=== PATIENT | male | born 1945 | race Caucasian/White ===

== ENCOUNTER → 2019-02-03 08:04 | Outpatient (CLI) | payer MEDICARE, SELFPAY ==
--- NOTE | 2019-02-03 | DI.CT.S_ITS ---
PROCEDURE: CT CHEST ABD PEL W CON INDICATIONS: STAGING PROSTATE CANCER TECHNIQUE: After the administration of oral and intravenous contrast, 5 mm thick sections acquired from the lung apices to the symphysis. 5 mm coronal and sagittal reformats were performed, with additional 7 mm coronal MIP reformats through the lungs. For radiation dose reduction, the following was used: automated exposure control, adjustment of mA and/or kV according to patient size. COMPARISON: [place], [place], [place] BONE SCAN WHOLE BODY, 02/03/2019, 12:05. FINDINGS: Image quality: Excellent. CHEST: Lungs and pleura: There is mild atelectasis in the dependent lung bases bilaterally. No acute airspace opacities. No pleural effusions or pneumothorax. Central and peripheral airways appear patent and normal in caliber. Mediastinum: Heart size is normal. No pericardial effusion. No mediastinal or hilar adenopathy by size criteria. Thoracic aorta and central pulmonary arteries are normal in size. Esophagus is normal in caliber. No hiatal hernia. Chest wall: No axillary or supraclavicular adenopathy by size criteria. Thyroid gland is unremarkable. ABDOMEN: Solid organs: Liver is normal in size and overall enhancement. An 8 mm diameter hypervascular lesion is present within hepatic segment VII (series 2, image 50). A possible second 4 mm diameter hypervascular lesion is present within hepatic segment II (series 2, image 51). Gallbladder is unremarkable. Biliary system is non dilated. Pancreas enhances normally. Spleen is normal in size and enhancement. No adrenal nodules. Kidneys demonstrate normal size and enhancement, without hydronephrosis. Peritoneum and bowel: Bowel loops demonstrate normal wall thickness and caliber. There are scattered sigmoid diverticula. No evidence for diverticulitis. No free fluid or air. Nodes and vessels: No retroperitoneal or mesenteric adenopathy by size criteria. Aorta and inferior vena cava are normal in size. There are scattered atheromatous calcifications throughout the aorta and iliac arteries bilaterally. Miscellaneous: No ventral hernias. PELVIS: Genitourinary: Bladder wall thickness is normal. Miscellaneous: No inguinal hernias or adenopathy. Bones: No suspicious bony lesions. No vertebral body compression fractures. IMPRESSION: 1. 2 subcentimeter hypervascular lesions within the liver which likely represent small hemangiomas but are too small to fully characterize. Although neoplasm is considered less likely, hepatic metastasis cannot be entirely excluded. If further characterization is warranted, a hepatic mass protocol MRI could be used. 2. No other findings to suggest metastasis. Dictated by: Mamie Jean-Baptiste M.D. on 02/03/2019 at 13:24 Approved by: Mamie Jean-Baptiste M.D. on 02/03/2019 at 13:41
--- NOTE | 2019-02-03 | DI.NM.S_ITS ---
PROCEDURE: [place] BONE SCAN WHOLE BODY RADIOPHARMACEUTICAL: 19.4 mCi Tc-99m MDP IV. INDICATIONS: PROSTATE CANCER TECHNIQUE: Delayed whole-body scintigrams were obtained approximately 3-4 hours after intravenous injection of radiotracer. Anterior and posterior views were acquired from vertex to feet. Additional left and right oblique views of the thoracic cage and lumbar were obtained. COMPARISON: [facility], CR, CHEST 1 VIEW, 06/11/2015, 10:25. [facility], CT, CT CHEST ABD PEL W CON, 02/03/2019, 9:51. FINDINGS: No lesions are identified in skull, sternum, clavicles, scapulae, ribs, bony pelvis, and visualized shafts of the long bones. There is low level increased uptake in cervical, thoracic and lumbar spine with distribution indistinguishable from degenerative disc and facet disease; early metastasis to spine could be obscured by degenerative changes. There are foci of increased periarticular activity involving shoulders, sternoclavicular joints, elbows, wrists, hips, SI joints and left knee, compatible with degenerative/arthritic changes. There is normal soft tissue uptake. IMPRESSION: No definitive scintigraphic findings to suggest osseous metastasis. Degenerative changes in thoracic spine which could obscure early metastatic disease. If clinically indicated, MRI with and without contrast is suggested. Dictated by: Jose Carlos Morales M.D. on 02/03/2019 at 14:41 Approved by: Jose Carlos Morales M.D. on 02/03/2019 at 16:05
[2019-02-03 09:03] LABS: BUN Creatinine Ratio 12.7 (6-22); Blood Urea Nitrogen 14 mg/dL (9-20); Calcium 8.9 mg/dL (8.4-10.2); Carbon Dioxide 26 mmol/L (22-32); Chloride 103 mmol/L (98-107); Estimated Glomerular Filt Rate > 60.0 mL/min (>60); Glucose 104 mg/dL (80-110); HEMOLYSIS < 15 (0-50); Potassium 4.1 mmol/L (3.4-5.1); Sodium 140 mmol/L (137-145)
== END ==
PROVIDERS: PCP Family Medicine; Visit Provider Specialist
DX: C61 Malignant neoplasm of prostate (principal); K76.9 Liver disease, unspecified; K57.30 Diverticulosis of large intestine without perforation or abscess without bleeding; M47.814 Spondylosis without myelopathy or radiculopathy, thoracic region
CPT/HCPCS: 36415; 71260; 74177; 78306; 80048; A9503; Q9967

== ENCOUNTER → 2020-11-02 14:14 | Outpatient (CLI) | payer MEDICARE, SELFPAY ==
[2020-11-02] MEDS: COVID-19 VACC #1, MRNA(MOD) 100 MCG/0.5 ML VIAL IM (14:22)
== END ==
PROVIDERS: PCP Family Medicine; Visit Provider Internal Medicine
DX: Z23 Encounter for immunization (principal)
CPT/HCPCS: 0011A; 91301

== ENCOUNTER 2020-11-17 14:48 | Emergency (ER) | payer MEDICARE, SELFPAY ==
--- NOTE | 2020-11-17 14:49 | ED.HEATRA ---
HPI - Head Injury General Chief complaint: Head Injury Stated complaint: fall and hit head, memory loss, repeating self Time Seen by Provider: 11/17/20 14:49 Source: patient Mode of arrival: Ambulatory Limitations: no limitations History of Present Illness HPI Narrative: 75-year-old male former smoker with a history of hyperlipidemia presents with his in the chief complaint of a slip and fall with a head injury just prior to arrival. He denies any other injury and does not take blood thinners. He was out on the [place] driveway, shoveling the snow when he slipped and fell striking the back of his head. He does not think he had a loss of consciousness and he has had no nausea or vomiting. He denies any numbness, tingling or weakness. He has had no slurring of words and no blurred vision. He has no neck pain or back pain. He denies any precipitating event such as dizziness, weakness, lightheadedness. He has had some repetitive questioning since the event but who is at the bedside states he is otherwise well and free of complaint. He denies any exposure to persons known or suspected of having COVID. He has only a mild headache and denies any provocation or palliation. MD Complaint: head injury Onset (ago): minute(s) Mechanism of Injury: fall Place: outdoors Loss of Consciousness: unsure Location of injury: occipital Severity: mild Radiation: none Other Injuries: none Associated symptoms: repetitive questioning Related Data Home Medications Medication Instructions Recorded Confirmed atorvastatin 10 mg tablet 10 mg PO DAILY 09/03/20 09/06/20 cyanocobalamin (vitamin B-12) 500 500 mcg PO DAILY 09/03/20 09/06/20 mcg chewable tablet omega-3 fatty acids 1,000 mg 1,000 mg PO DAILY 09/03/20 09/06/20 capsule Allergies Allergy/AdvReac Type Severity Reaction Status Date / Time No Known Drug Allergies Allergy Verified 11/17/20 15:03 Review of Systems Constitutional Constitutional: Denies chills, Denies fatigue, Denies fever(s), Denies frequent falls, Denies lethargy and Denies weakness Eyes Eyes: Denies change in vision, Denies eye discharge, Denies irritation and Denies loss of vision ENT Ears, Nose, Mouth, and Throat: Denies change in voice, Denies dizziness, Denies neck pain, Denies sore throat and Denies throat swelling Cardiovascular Cardiovascular: Denies chest pain, Denies irregular heart rhythm, Denies lightheadedness, Denies palpitations, Denies dyspnea, Denies dyspnea on exertion and Denies orthopnea Respiratory Respiratory: Denies cough, Denies dyspnea, Denies dyspnea on exertion and Denies wheezing Gastrointestinal Gastrointestinal: Denies abdominal pain, Denies change in bowel habits, Denies diarrhea, Denies nausea and Denies vomiting Musculoskeletal Musculoskeletal: Denies neck pain and Denies numbness Integumentary/Breasts Skin/Breast: Denies pruritus, Denies erythema, Denies rash and Denies wounds Neurologic Neurologic: Denies behavioral changes, Denies confusion, Denies dizziness, Denies frequent falls, Denies loss of vision, Denies numbness and Denies weakness Comments: Occasional repetitive questioning Psychiatric Psychiatric: Denies anxiety, Denies behavioral changes, Denies confusion, Denies depression, Denies homicidal ideation and Denies suicidal ideation Endocrine Endocrine: Denies fatigue, Denies flushing and Denies palpitations Hematologic/Lymphatic Hematologic/Lymphatic: Denies easy bruising Allergic/Immunologic Allergic/Immunologic: Denies urticaria, Denies throat swelling and Denies wheezing Patient History Medical History BPH (benign prostatic hyperplasia) Prostate cancer Testicular cancer Surgical History H/O prostate biopsy H/O prostatectomy H/O vasectomy Hx of appendectomy Family History Father Stroke Eczema Mother Gout Hearing impairment Social History marital status: number of children: 2 occupational status: previously employed Smoking Status: Former smoker alcohol intake: current caffeine: Yes Smoking Status: Former smoker Exam Narrative Exam Narrative: GENERAL: [75] year old patient appears stated age. Well-nourished, well-developed patient, in mild distress. GCS 15 HEAD: Atraumatic. Normocephalic. EYES: Pupils equal round and reactive. Extraocular motions intact. No scleral icterus. No injection or drainage. ENT: Nose without bleeding, purulent drainage. Throat without erythema, tonsillar hypertrophy or exudate. Airway patent. NECK: Trachea midline. Non tender CARDIOVASCULAR: Regular rate and rhythm without murmurs, gallops, or rubs. RESPIRATORY: Clear to auscultation. Breath sounds equal bilaterally. No wheezes, rales, or rhonchi. GASTROINTESTINAL: Abdomen soft, non-tender, nondistended. EXTREMITIES: No edema or joint tenderness. BACK: Nontender without deformity or crepitance. No flank tenderness. NEURO: AOx3. SKIN: No rash or erythema of visible areas NIH Stroke Scale 1a. LOC: Patient is alert and keenly responsive (0) 1b. LOC Questions: Patient answers both LOC questions accurately (0) 1c. LOC Commands: Patient performs both tasks correctly (0) 2. Best Gaze: Normal (0) 3. Visual: No visual loss (0) 4. Facial palsy: Normal symmetrical movements (0) 5. Motor arm: No drift (0) 6. Motor leg: No drift (0) 7. Limb ataxia: Absent (0) 8. Sensory: Normal (0) 9. Best language: No aphasia; normal (0) 10. Dysarthria: Normal (0) 11. Extinction and inattention: No abnormality (0) NIHSS: 0 Initial Vital Signs Initial Vital Signs: Vital Signs Temperature 97.7 F 11/17/20 14:58 Pulse Rate 84 11/17/20 14:58 Respiratory Rate 20 11/17/20 14:58 Blood Pressure 165/75 H 11/17/20 14:58 Pulse Oximetry 97 11/17/20 14:58 Course Orders Ordered: Discontinued Medications Sodium Chloride (Normal Saline 0.9%) 500 mls @ 1,000 mls/hr IV BOLUS ONE Stop: 11/17/20 16:24 Last Infusion: 11/17/20 16:30 Dose: 0 mls/hr Documented by: Admin: 11/17/20 16:04 Dose: 1,000 mls/hr Documented by: ADAL Ondansetron HCl (Ondansetron 4 Mg/2 Ml Inj) 4 mg IV NOW ONE Stop: 11/17/20 15:06 Last Admin: 11/17/20 15:20 Dose: 4 mg Documented by: THELMA Vital Signs Vital signs: Vital Signs - 8 hr 11/17/20 14:58 11/17/20 15:19 11/17/20 15:30 Temperature 97.7 F Pulse Rate 84 77 69 Respiratory Rate 20 15 12 Blood Pressure 165/75 H 137/74 Pulse Oximetry 97 96 96 MDM - Head Injury Lab Data Result diagrams: 11/17/20 15:16 11/17/20 15:16 Labs: Lab Results 11/17/20 11/17/20 11/17/20 Range/Units 15:16 15:16 15:16 WBC 7.9 (4.5-11.0) X10^3/uL RBC 4.59 (4.5-5.9) X10^6/uL Hgb 13.3 L (13.5-17.5) g/dL Hct 39.7 L (41-53) % MCV 86.6 (80-100) fL MCH 29.1 (26-34) PG MCHC 33.6 (30-36) % RDW 13.9 (11.6-14.8) % Plt Count 267 (150-400) X10^3/uL Neut % (Auto) 60.6 (50-75) % Lymph % (Auto) 26.2 (25-40) % [place] % (Auto) 8.3 (3-14) % Eos % (Auto) 3.7 (2-4) % Baso % (Auto) 1.2 (0-2) % Neut # (Auto) 4800 (5213-4428) /uL Lymph # (Auto) 2100 (9331-7563) /uL [place] # (Auto) 700 (0-900) /uL Eos # (Auto) 300 (0-450) /uL Baso # (Auto) 100 (0-100) /uL PT 11.2 (10.1-12.7) SECONDS INR 1.0 (0.9-1.3) APTT 30 (26.4-36.2) SECONDS Sodium 137 (137-145) mmol/L Potassium 3.7 (3.4-5.1) mmol/L Chloride 104 (98-107) mmol/L Carbon Dioxide 26 (22-32) mmol/L BUN 19 (9-20) mg/dL Creatinine 1.37 H (0.66-1.25) mg/dL Estimated GFR 50.9 L (>60) mL/min BUN/Creatinine Ratio 13.9 (6-22) Glucose 124 H (80-110) mg/dL Calcium 8.5 (8.4-10.2) mg/dL Magnesium 2.1 (1.6-2.3) mg/dL Total Bilirubin 0.2 (0.2-1.3) mg/dL AST 26 (17-59) IU/L ALT 21 (<50) IU/L Alkaline Phosphatase 87 (38-126) U/L Total Creatine Kinase 203 H (55-170) U/L CK-MB (CK-2) 2.92 H (<2.37) ng/mL CK-MB (CK-2) Rel Index 1.4 L (1.5-5.0) % Troponin I < 0.012 (0.01-0.034) ng/mL Total Protein 7.4 (6.3-8.2) g/dL Albumin 4.0 (3.5-5.0) g/dL Globulin 3.4 (1.7-4.1) g/dL Albumin/Globulin Ratio 1.2 (1.0-2.8) Lipase 46 (23-300) U/L Urine RBC (0-5/HPF) Urine WBC (0-5/HPF) Urine Bacteria (None) Ur Culture Indicated? 11/17/20 Range/Units 16:00 WBC (4.5-11.0) X10^3/uL RBC (4.5-5.9) X10^6/uL Hgb (13.5-17.5) g/dL Hct (41-53) % MCV (80-100) fL MCH (26-34) PG MCHC (30-36) % RDW (11.6-14.8) % Plt Count (150-400) X10^3/uL Neut % (Auto) (50-75) % Lymph % (Auto) (25-40) % [place] % (Auto) (3-14) % Eos % (Auto) (2-4) % Baso % (Auto) (0-2) % Neut # (Auto) (9783-4932) /uL Lymph # (Auto) (9450-5266) /uL [place] # (Auto) (0-900) /uL Eos # (Auto) (0-450) /uL Baso # (Auto) (0-100) /uL PT (10.1-12.7) SECONDS INR (0.9-1.3) APTT (26.4-36.2) SECONDS Sodium (137-145) mmol/L Potassium (3.4-5.1) mmol/L Chloride (98-107) mmol/L Carbon Dioxide (22-32) mmol/L BUN (9-20) mg/dL Creatinine (0.66-1.25) mg/dL Estimated GFR (>60) mL/min BUN/Creatinine Ratio (6-22) Glucose (80-110) mg/dL Calcium (8.4-10.2) mg/dL Magnesium (1.6-2.3) mg/dL Total Bilirubin (0.2-1.3) mg/dL AST (17-59) IU/L ALT (<50) IU/L Alkaline Phosphatase (38-126) U/L Total Creatine Kinase (55-170) U/L CK-MB (CK-2) (<2.37) ng/mL CK-MB (CK-2) Rel Index (1.5-5.0) % Troponin I (0.01-0.034) ng/mL Total Protein (6.3-8.2) g/dL Albumin (3.5-5.0) g/dL Globulin (1.7-4.1) g/dL Albumin/Globulin Ratio (1.0-2.8) Lipase (23-300) U/L Urine RBC 0-1/hpf (0-5/HPF) Urine WBC 0-1/hpf (0-5/HPF) Urine Bacteria None seen (None) Ur Culture Indicated? Cult not indicated Urine Dip Bedside Urine Glucose Negative Bedside Urine Bilirubin - Negative Bedside Urine Ketone - Negative Urine Specific [place] 1.025 Bedside Urine Occult Blood +/- Bedside Urine pH 6.0 Bedside Urine Protein - Negative Bedside Urine Urobilinogen - Negative Bedside Urine Nitrite - Negative Bedside Urine Leukocytes - Negative Esterase Imaging Data CT scan - head: Radiologist's Impression: Chart Viewer Diagnostics DATE TYPE STATUS REF RANGE/AUTHOR Hx 11/17/20 15:03 Jim Morris 11/17/20 14:55 Jim Morris 02/03/19 00:00 Mamie Jean-Baptiste 02/03/19 00:00 Hayden Morales James R 75, M0 1945 DEP ER, Main ED Head Injury Search Chart No Data to Display ONSET 11/17/20 16:30 Emiliano Goyal 75 M [address] [id number] Scan ReportSigned Patient: Emiliano Goyal RMR#: [id number]: 1945cct:[id number]/Sex: 75 / MDate of Service: 11/17/20Loc: EDAccession Number: [id number] Procedure: CT head/brain wo con Ordering Provider: Brannon Avilez D.O. PROCEDURE: CT HEAD/BRAIN WO CON INDICATIONS: fall, ? LOC, not on thinners, alt mental status TECHNIQUE: Noncontrast 4.5 mm thick angled axial sections acquired from the foramen magnum to the vertex, with coronal and sagittal reformats. For radiation dose reduction, the following was used: automated exposure control, adjustment of mA and/or kV according to patient size. COMPARISON: None. FINDINGS: Image quality: Excellent. CSF spaces: Basal cisterns are patent. No extra-axial fluid collections. The ventricles are symmetric in size and shape. Brain: No acute intracranial hemorrhage or mass effect. There is mild cerebral volume loss for age, with resultant ventricular and sulcal prominence. There are mild periventricular and deep white matter chronic small vessel ischemic changes. There is intracranial internal carotid artery atherosclerosis. Skull and face: Calvarium and visualized facial bones appear intact, without suspicious lesions. Sinuses: Mild mucosal thickening is seen in the left maxillary sinus. The remaining visualized paranasal sinuses and mastoids are clear. IMPRESSION: No acute intracranial abnormality. Dictated by: Jim Morris M.D. on 11/17/2020 at 15:20 Approved by: Jim Morris M.D. on 11/17/2020 at 15:22 [facility] Narrative Medical decision making narrative: Multiple diagnoses including subdural hemorrhage versus subarachnoid hemorrhage versus epidural hemorrhage versus concussion considered. Patient has very reassuring exam, labs, and head CT. He and are given extensive return precautions and demonstrate understanding by verbalizing them back to me. QUestions answered to their apparent satisfaction Discharge Plan Departure Patient Disposition: Home Clinical Impression: Concussion Qualifiers: Encounter type: initial encounter Loss of consciousness presence/duration: with LOC of unspecified duration Qualified Code(s): S06.0X9A - Concussion with loss of consciousness of unspecified duration, initial encounter Instructions: Concussion Activity Restrictions/Additional Instructions: *You have been diagnosed with [fall with head injury and concussion] *What to do: * continue to take medications as directed *Follow up with your primary care provider in 2-3 days, call for an appointment. Let them know you were seen in the Emergency Department and that we ask that you be seen in follow up *Return to ER if you should have any new, worsening or concerning symptoms, such as [increasing confusion, persistent vomiting, other bothersome symptoms] Prescriptions: No Action omega-3 fatty acids [Fish Oil Concentrate] 1,000 mg capsule 1,000 mg PO DAILY RF: 0 cyanocobalamin (vitamin B-12) 500 mcg tablet,chewable 500 mcg PO DAILY RF: 0 atorvastatin 10 mg tablet 10 mg PO DAILY RF: 0 Referrals: Karin Rolle MD [Primary Care Provider] -
--- NOTE | 2020-11-17 14:55 | DI.CT.S_ITS ---
PROCEDURE: CT HEAD/BRAIN WO CON INDICATIONS: fall, ? LOC, not on thinners, alt mental status TECHNIQUE: Noncontrast 4.5 mm thick angled axial sections acquired from the foramen magnum to the vertex, with coronal and sagittal reformats. For radiation dose reduction, the following was used: automated exposure control, adjustment of mA and/or kV according to patient size. COMPARISON: None. FINDINGS: Image quality: Excellent. CSF spaces: Basal cisterns are patent. No extra-axial fluid collections. The ventricles are symmetric in size and shape. Brain: No acute intracranial hemorrhage or mass effect. There is mild cerebral volume loss for age, with resultant ventricular and sulcal prominence. There are mild periventricular and deep white matter chronic small vessel ischemic changes. There is intracranial internal carotid artery atherosclerosis. Skull and face: Calvarium and visualized facial bones appear intact, without suspicious lesions. Sinuses: Mild mucosal thickening is seen in the left maxillary sinus. The remaining visualized paranasal sinuses and mastoids are clear. IMPRESSION: No acute intracranial abnormality. Dictated by: Jim Morris M.D. on 11/17/2020 at 15:20 Approved by: Jim Morris M.D. on 11/17/2020 at 15:22
[2020-11-17 14:58] VITALS: BP 165/75; PULSE 84; RESP 20; TEMP 36.5; O2SAT 97
--- NOTE | 2020-11-17 15:03 | DI.RAD.S_ITS ---
PROCEDURE: XR CHEST 1V INDICATIONS: chest pain TECHNIQUE: One view of the chest was acquired. COMPARISON: [facility], , CHEST 1 VIEW, 06/11/2015, 10:25. FINDINGS: Surgical changes and devices: None. Lungs and pleura: Lungs are clear. No pleural effusions or pneumothorax. Mediastinum: Mediastinal contours appear normal. Heart size is stable. Bones and chest wall: No suspicious bony lesions. Overlying soft tissues appear unremarkable. IMPRESSION: No acute cardiopulmonary abnormality. Dictated by: Jim Morris M.D. on 11/17/2020 at 15:17 Approved by: Jim Morris M.D. on 11/17/2020 at 15:18
[2020-11-17 15:19] VITALS: PULSE 77; RESP 15; O2SAT 96
[2020-11-17] MEDS: ONDANSETRON 4 MG/2 ML INJ IV (15:20)
--- NOTE | 2020-11-17 15:28 | PC.NURSE ---
Moving all extremities equally well. Had episode of difficulty swallowing last night w/ dinner; self limiting and no difficulty now. c/o mid thoracic back pain that does not get worse w/ movement. On abx for UTI. Denies new bowel/bladder difficulty. Moving lower extremities equally well.
[2020-11-17 15:30] VITALS: BP 137/74; PULSE 69; RESP 12; O2SAT 96
[2020-11-17 15:35] LABS: Add Manual Diff / Slide Review NO; Basophils Absolute Auto 100 /uL (0-100); Basophils Percent Auto 1.2 % (0-2); Eosinophils Absolute Auto 300 /uL (0-450); Eosinophils Percent Auto 3.7 % (2-4); Hematocrit 39.7 % (41-53); Hemoglobin 13.3 g/dL (13.5-17.5); Lymphocytes Absolute Auto 2100 /uL (1100-4500); Lymphocytes Percent Auto 26.2 % (25-40); Mean Corpuscular HGB Conc 33.6 % (30-36); Mean Corpuscular Hemoglobin 29.1 PG (26-34); Mean Corpuscular Volume 86.6 fL (80-100); Monocytes Absolute Auto 700 /uL (0-900); Monocytes Percent Auto 8.3 % (3-14); Neutrophils Absolute Auto 4800 /uL (1500-7000); Neutrophils Percent Auto 60.6 % (50-75); Platelet Count 267 X10^3/uL (150-400); Red Blood Cell Count 4.59 X10^6/uL (4.5-5.9); Red Cell Distribution Width 13.9 % (11.6-14.8); White Blood Cell Count 7.9 X10^3/uL (4.5-11.0)
[2020-11-17 15:38] LABS: Prothrombin Time 11.2 SECONDS (10.1-12.7)
[2020-11-17 15:40] LABS: PTT Partial Thromboplastin Tim 30 SECONDS (26.4-36.2)
[2020-11-17 15:42] LABS: Alanine Aminotransferase 21 IU/L (<50); Albumin Globulin Ratio 1.2 (1.0-2.8); Alkaline Phosphatase 87 U/L (38-126); Aspartate Aminotransferase 26 IU/L (17-59); BUN Creatinine Ratio 13.9 (6-22); Bilirubin Total 0.2 mg/dL (0.2-1.3); Blood Urea Nitrogen 19 mg/dL (9-20); Calcium 8.5 mg/dL (8.4-10.2); Carbon Dioxide 26 mmol/L (22-32); Chloride 104 mmol/L (98-107); Creatine Kinase 203 U/L (55-170); Estimated Glomerular Filt Rate 50.9 mL/min (>60); Globulin 3.4 g/dL (1.7-4.1); Glucose 124 mg/dL (80-110); HEMOLYSIS < 15 (0-50); Lipase 46 U/L (23-300); Magnesium 2.1 mg/dL (1.6-2.3); Potassium 3.7 mmol/L (3.4-5.1); Sodium 137 mmol/L (137-145); Total Protein 7.4 g/dL (6.3-8.2)
[2020-11-17 15:53] LABS: Troponin I < 0.012 ng/mL (0.01-0.034)
[2020-11-17 15:57] LABS: CKMB % Relative Index 1.4 % (1.5-5.0); Creatine Kinase MB 2.92 ng/mL (<2.37)
[2020-11-17 16:00] VITALS: BP 159/74; PULSE 78; RESP 19; O2SAT 98
[2020-11-17] MEDS: SODIUM CHLORIDE 0.9% 500 ML 1000 ML IV (16:04)
[2020-11-17 16:18] LABS: Bacteria Urine None Seen
[2020-11-17 16:30] VITALS: BP 139/68; PULSE 69; RESP 16; O2SAT 97
[2020-11-17 16:37] LABS: Culture Indicated Urine Cult Not Indicated; RBC Urine 0-1/HPF (0-5/HPF); WBC Urine 0-1/HPF (0-5/HPF)
== END 2020-11-17 16:41 | disposition home or self-care (01) ==
PROVIDERS: Emergency Provider Emergency Medicine; PCP Family Medicine
DX: S06.0X9A Concussion with loss of consciousness of unspecified duration, initial encounter (principal); E78.5 Hyperlipidemia, unspecified; N40.0 Benign prostatic hyperplasia without lower urinary tract symptoms; W00.2XXA Other fall from one level to another due to ice and snow, initial encounter; R07.9 Chest pain, unspecified
CPT/HCPCS: 36415; 70450; 71045; 80053; 81003; 81015; 82550; 82553; 83690; 83735; 84484; 85025; 85610; 85730; 93005; 93010; 96374; 99284; J2405

== ENCOUNTER → 2020-11-27 16:29 | Outpatient (CLI) | payer MEDICARE, SELFPAY ==
--- NOTE | 2020-11-27 16:33 | DI.RAD.S_ITS ---
PROCEDURE: XR THORACIC SPINE 3V INDICATIONS: BACK PAIN TECHNIQUE: 3 views of the thoracic spine were acquired. COMPARISON: [facility], CR, XR CHEST 1V, 11/17/2020, 15:03. FINDINGS: Bones: No fractures or dislocations. No suspicious bony lesions. 1 there are moderate degenerative disc disease in thoracic spine. 13 pairs of ribs are noted, and appear intact where visualized. Soft tissues: No paravertebral stripe thickening. IMPRESSION: 1. 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 2. 13 pairs of ribs are noted. Dictated by: Jose Carlos Morales M.D. on 11/27/2020 at 17:22 Approved by: Jose Carlos Morales M.D. on 11/27/2020 at 17:24
== END ==
PROVIDERS: PCP Family Medicine; Referring Provider Family Medicine; Visit Provider Family Medicine
DX: M54.9 Dorsalgia, unspecified (principal); M51.24 Other intervertebral disc displacement, thoracic region
CPT/HCPCS: 72072

== ENCOUNTER → 2020-11-30 14:05 | Outpatient (CLI) | payer MEDICARE, SELFPAY ==
[2020-11-30] MEDS: COVID-19 VACC #2, MRNA(MOD) 100 MCG/0.5 ML VIAL IM (14:17)
== END ==
PROVIDERS: PCP Family Medicine; Visit Provider Internal Medicine
DX: Z23 Encounter for immunization (principal)
CPT/HCPCS: 0012A; 91301

== ENCOUNTER 2022-10-19 09:31 | Emergency (ER) | payer MEDICARE, SELFPAY ==
--- NOTE | 2022-10-19 09:35 | DI.RAD.S_ITS ---
PROCEDURE: XR WRIST LT MIN 3V INDICATIONS: fall TECHNIQUE: 3 views of the wrist were acquired. COMPARISON: None. FINDINGS: Bones: There is a minimally displaced radial styloid fracture, with intra-articular involvement. No additional fractures are detected. Age-appropriate bony degenerative changes are seen. Scaphoid view: Not done. Soft tissues: No suspicious soft tissue calcifications. IMPRESSION: Minimally displaced radial styloid fracture, with intra-articular involvement. If it would be helpful for clinical management decision making in this patient with this given history, please consider a dedicated wrist CT for further evaluation. Dictated by: Christophe Jackson M.D. on 10/19/2022 at 9:01 Approved by: Christophe Jackson M.D. on 10/19/2022 at 9:02
[2022-10-19 09:36] VITALS: PULSE 63; O2SAT 97
[2022-10-19 09:39] VITALS: BP 162/77; PULSE 62; RESP 16; TEMP 36.2; O2SAT 96; BMI 31.1
[2022-10-19 10:00] VITALS: PULSE 60; RESP 20; O2SAT 97
[2022-10-19 10:16] VITALS: BP 150/71; PULSE 61; RESP 18
--- NOTE | 2022-10-19 10:36 | ED.FALL ---
HPI - Fall General Chief Complaint: Fall Stated Complaint: fall injury, Lt wrist pain, confusion Time Seen by Provider: 10/19/22 09:33 History of Present Illness HPI Narrative: 77-year-old male former smoker with history of prostate CA presents with multiple family members in the chief complaint of a mechanical fall resulting in left wrist injury. He was in his normal state of health prior to this happening and states this is purely a result of his feet getting caught up underneath him. He denies any dizziness, weakness or lightheadedness prior to the episode in his feet were caught up underneath him when he was moving a heavy object. He fell onto an outstretched left wrist and now has pain in his wrist. He denies any head neck or back pain. Denies any shoulder or elbow pain. He has pain in his left wrist that is worse with motion and improves with rest. He denies any numbness, tingling or weakness. Immediately after the event when he stood up he felt lightheaded briefly, he was eased into a seated position and his symptoms resolved relatively quickly. He is had no ongoing dizziness or lightheadedness and continues to be at his baseline Related Data Home Medications Medication Instructions Recorded Confirmed atorvastatin 10 mg tablet 10 mg PO DAILY 09/03/20 07/08/22 cyanocobalamin (vitamin B-12) 500 500 mcg PO DAILY 09/03/20 07/08/22 mcg chewable tablet omega-3 fatty acids 1,000 mg 1,000 mg PO DAILY 09/03/20 07/08/22 capsule (Fish Oil Concentrate) cholecalciferol (vitamin D3) PO 06/11/21 07/08/22 losartan 25 mg tablet 25 mg PO DAILY 03/19/22 07/08/22 Previous Rx's Medication Instructions Recorded hydrocodone 5 mg-acetaminophen 325 1 tab PO Q4-6H PRN pain #10 tabs 10/19/22 mg tablet Allergies Allergy/AdvReac Type Severity Reaction Status Date / Time No Known Drug Allergies Allergy Verified 07/08/22 09:39 Review of Systems Review of Systems Narrative: GENERAL: Denies chills, fatigue, malaise, fever, sweats. HEENT: Denies sinus pain, ear pain, sore throat, difficulty swallowing, dizziness. RESPIRATORY: Denies dyspnea, cough, wheezing, hemoptysis, sputum. CARDIOVASCULAR: Denies chest pain, palpitations, orthopnea, edema, GASTROINTESTINAL: Denies nausea, vomiting, abdominal pain, diarrhea, constipation, melena. : Denies dysuria, frequency, incontinence, hematuria, urinary retention. MUSCULOSKELETAL: See HPI SKIN: Denies rash, skin lesions, or other NEUROLOGIC: Denies weakness, headache, numbness, change in speech, confusion, seizures, incoordination. PSYCHIATRIC: No concerning psychosocial issues. 12 point review of systems is negative except for those stated above Patient History Medical History BPH (benign prostatic hyperplasia) History of malignant neoplasm of prostate History of malignant neoplasm of testis Prostate cancer Testicular cancer Surgical History H/O prostate biopsy H/O prostatectomy H/O vasectomy Hx of appendectomy Family History Father Stroke Eczema Mother Gout Hearing impairment Social History marital status: number of children: 2 occupational status: previously employed Smoking Status: Former smoker alcohol intake: current caffeine: Yes Smoking Status: Former smoker alcohol intake frequency: 0-2 drinks per day Substance Use Type: does not use Exam Narrative Exam Narrative: GENERAL: [77] year old patient appears stated age. Well-developed patient, in mild distress. HEAD: Atraumatic. Normocephalic. EYES: Pupils equal round and reactive. Extraocular motions intact. No scleral icterus. No injection or drainage. ENT: Nose without bleeding, purulent drainage. Throat without erythema, tonsillar hypertrophy or exudate. Airway patent. NECK: Trachea midline. Non tender CARDIOVASCULAR: Regular rate and rhythm without murmurs, gallops, or rubs. RESPIRATORY: Clear to auscultation. Breath sounds equal bilaterally. No wheezes, rales, or rhonchi. GASTROINTESTINAL: Abdomen soft, non-tender, nondistended. EXTREMITIES: Full but slightly painful range of motion of the left wrist, closed, isolated and neurovascularly intact. No pain with axial loading of the thumb. No pain in elbow or shoulder BACK: Nontender without deformity or crepitance. No flank tenderness. NEURO: AOx3. SKIN: No rash or erythema of visible areas Initial Vital Signs Initial Vital Signs: Vital Signs Pulse Rate 63 10/19/22 09:36 Pulse Oximetry 97 10/19/22 09:36 Procedures Orthopedic Splinting/Casting Injury #1: Side: left Upper Extremity Injury Location: wrist Upper Extremity Immobilizer: sling/shoulder immobilizer and sugar tong splint Post splinting neuro exam: intact Post splinting vascular exam: intact Placed by: Nursing Course Orders Ordered: ED Orders 10/19/22 09:35 XR wrist LT min 3V Stat 10/19/22 09:51 EKG-12 Lead Routine Consultations Consultation #1: discussed with Dr. Addison (Ortho). She has reviewed history, physical, and images. Clearly no indication for any attempt at reduction, furthermore, recommends no need for advanced imaging in the form of a CT at this time, splinting and follow-up is appropriate Vital Signs Vital signs: Vital Signs - 8 hr 10/19/22 09:39 Temperature 97.2 F L Pulse Rate 62 Respiratory Rate 16 Blood Pressure 162/77 H Pulse Oximetry 96 Oxygen Delivery Method Room Air MDM - Fall MDM Narrative Medical decision making narrative: 77-year-old male with ground level fall resulting in left wrist injury [] Multiple etiologies for patient's symptoms considered including, but not limited to: [Fracture, dislocation versus other] Prior Charts reviewed: Including prior ED note for concussion in 2020 Labs reviewed and interpreted by myself: None indicated Imaging reviewed: Very minimally displaced (if any) left radial styloid fracture Consultations: Dr. Addison (orthopedics) has reviewed case, see details above Patient's symptoms improved over duration of stay with above-stated therapies. Thankfully, there is no need for any procedural sedation, hematoma block or attempts at reduction. There is extensive discussion with patient and family about the lightheaded episode he had immediately after his fall. He is very clear as is family that there were no prodromal symptoms contributing to the fall and then it was purely mechanical. His symptoms of dizziness and lightheadedness cleared very quickly and occurred after a painful injury upon standing. He was helped to the ground for a moment and his symptoms rapidly went away. This is most likely a vagal response and highly unlikely to be related to a more severe underlying medical condition. We did discuss the risks and benefits of a more in-depth medical workup but sure the opinion that based on the circumstances it is not indicated Findings and discharge diagnosis discussed with patient/family followed by verbalization of understanding Return precautions discussed with patient/family whom verbalize understanding of diagnosis and plan Discharge Plan Departure Patient Disposition: Home Clinical Impression: Distal radial fracture Instructions: How to Prevent Falls Activity Restrictions/Additional Instructions: *You have been diagnosed with [nondisplaced left radial styloid fracture] *What to do: *Please continue to take your regular medications as directed. [ ] New medication prescriptions sent to your pharmacy: [ ] [ ] New medication written as a paper prescription [x] Tylenol and occasional Motrin for pain *Please follow up with Dr. Naresh Addison] of [facility] in 2-3 days, call for an appointment. Let them know you were seen in the Emergency Department and that we ask that you be seen in follow up. We will electronically transmit a record of today's note if your PCP is in our system *Return to Emergency Department if you should have any new, worsening or concerning symptoms, such as [worsening pain, significant swelling, cold extremities, numbness, tingling, weakness or other bothersome symptoms Splint Care: Keep splint clean and dry. Elevated affected body part to decrease swelling. OK to use ice pack on the affected body part. Use for 15-20 minutes each time, for 5-6x per day. If you develop worsening pain, numbness, tingling, discoloration of the affected body part, loosen the splint by loosening the MONIKA wrap, and either see your doctor for an urgent re-assessment, or return to the Emergency Department. Return to the Emergency Department for any new or worsening symptoms. Prescriptions: New hydrocodone-acetaminophen 5-325 mg tablet 1 tab PO Q4-6H PRN (Reason: pain) Qty: 10 0RF No Action omega-3 fatty acids [Fish Oil Concentrate] 1,000 mg capsule 1,000 mg PO DAILY cyanocobalamin (vitamin B-12) 500 mcg tablet,chewable 500 mcg PO DAILY atorvastatin 10 mg tablet 10 mg PO DAILY losartan 25 mg tablet 25 mg PO DAILY cholecalciferol (vitamin D3) PO Referrals: Louise Addison MD [Physician] - Karin Rolle MD [Primary Care Provider] - Stand Alone Forms: Patient Portal/API
== END 2022-10-19 11:02 | disposition home or self-care (01) ==
PROVIDERS: Emergency Provider Emergency Medicine; PCP Family Medicine
DX: S52.502A Unspecified fracture of the lower end of left radius, initial encounter for closed fracture (principal); R41.0 Disorientation, unspecified; W18.30XA Fall on same level, unspecified, initial encounter; R03.0 Elevated blood-pressure reading, without diagnosis of hypertension
CPT/HCPCS: 29125; 73110; 93005; 93010; 99284

== ENCOUNTER → 2022-11-20 17:20 | Outpatient (CLI) | payer MEDICARE, SELFPAY ==
--- NOTE | 2022-11-20 17:26 | DI.RAD.S_ITS ---
PROCEDURE: XR CHEST 2V INDICATIONS: ACUTE COUGH TECHNIQUE: 2 views of the chest were acquired. COMPARISON: [facility], CR, XR CHEST 1V, 11/17/2020, 15:03. FINDINGS: Surgical changes and devices: Electronic device overlying the midline chest. Lungs and pleura: Blunting of the left costophrenic angle. Bibasilar hazy opacity. No pneumothorax. Mediastinum: Mediastinal contours are normal. Heart size is normal. Bones and chest wall: No suspicious bony abnormalities. Soft tissues appear unremarkable. IMPRESSION: Small left pleural effusion. Bibasilar atelectasis suspected. Dictated by: Anam Mariee M.D. on 11/21/2022 at 8:11 Approved by: Anam Mariee M.D. on 11/21/2022 at 8:13
[2022-11-20 18:08] LABS: Add Manual Diff / Slide Review NO; Basophils Absolute Auto 100 /uL (0-100); Basophils Percent Auto 0.9 % (0-2); Eosinophils Absolute Auto 400 /uL (0-450); Eosinophils Percent Auto 4.5 % (2-4); Hematocrit 37.5 % (41-53); Hemoglobin 12.6 g/dL (13.5-17.5); Lymphocytes Absolute Auto 1600 /uL (1100-4500); Mean Corpuscular HGB Conc 33.6 % (30-36); Mean Corpuscular Volume 86.4 fL (80-100); Monocytes Absolute Auto 600 /uL (0-900); Monocytes Percent Auto 6.6 % (3-14); Neutrophils Absolute Auto 6800 /uL (1500-7000); Platelet Count 437 X10^3/uL (150-400); Red Blood Cell Count 4.34 X10^6/uL (4.5-5.9); Red Cell Distribution Width 13.9 % (11.6-14.8); White Blood Cell Count 9.6 X10^3/uL (4.5-11.0)
[2022-11-20 18:32] LABS: Alanine Aminotransferase 83 IU/L (<50); Albumin 3.7 g/dL (3.5-5.0); Albumin Globulin Ratio 1.2 (1.0-2.8); Alkaline Phosphatase 107 U/L (38-126); Aspartate Aminotransferase 35 IU/L (17-59); BUN Creatinine Ratio 16.3 (6-22); Bilirubin Total 0.6 mg/dL (0.2-1.3); Blood Urea Nitrogen 15 mg/dL (9-20); Calcium 8.6 mg/dL (8.4-10.2); Carbon Dioxide 24 mmol/L (22-32); Chloride 104 mmol/L (98-107); Estimated Glomerular Filt Rate > 60 mL/min (>60); Glucose 97 mg/dL (80-110); HEMOLYSIS < 15 (0-50); Potassium 4.6 mmol/L (3.4-5.1); Sodium 138 mmol/L (137-145); Total Protein 6.7 g/dL (6.3-8.2)
[2022-11-20 18:39] LABS: NT-proBNP (BNP-Adult 18+) 187 pg/mL (<450)
== END ==
PROVIDERS: PCP Family Medicine; Referring Provider Family Medicine; Visit Provider Family Medicine
DX: R05.1 Acute cough (principal); E87.1 Hypo-osmolality and hyponatremia; J90 Pleural effusion, not elsewhere classified; R06.02 Shortness of breath; R55 Syncope and collapse
CPT/HCPCS: 36415; 71046; 80053; 83880; 85025

== ENCOUNTER → 2023-01-17 11:52 | Outpatient (CLI) | payer MEDICARE, SELFPAY ==
--- NOTE | 2023-02-11 10:48 | PM.PFT.1 ---
Pulmonary Function Test Referral & Results Date Patient Seen: 01/17/23 Results: The spirometry demonstrates an FVC of 2.77 L which is 70% of predicted. The FEV1 was measured at 2.05 L which is 71% of predicted. The FEV1/FVC ratio was 74 which is 102% of predicted. Following the administration of bronchodilator there was an 18% improvement in FEF 25-75%. Lung volumes show an SVC of 2.91 L which is 68% of predicted. The diffusing capacity was measured at 19.84 which is 65% of predicted. My no hemoglobin The maximum voluntary ventilation was reduced slightly Interpretation: This study demonstrates mild obstructive lung disease based on reduction FEV1 although FEV1/FVC ratio is preserved, there is only limited evidence of benefit following bronchodilator administration and that is seen only in small airway flow as noted above in the improvement in FEF 25-75% There is a moderate reduction in lung volumes suggesting the presence of moderate restrictive lung disease which may well explain the abnormality in the FEV1 above There is a [id number] reduction diffusing capacity suggesting the presence of disease at the capillary alveolar level Altogether this is consistent with a diagnosis of [id number] COPD
== END ==
PROVIDERS: PCP Family Medicine; Referring Provider Family Medicine; Visit Provider Family Medicine
DX: J98.8 Other specified respiratory disorders (principal); R06.02 Shortness of breath; R55 Syncope and collapse; R41.89 Other symptoms and signs involving cognitive functions and awareness; Z87.891 Personal history of nicotine dependence
CPT/HCPCS: 70551; 94060; 94726; 94729

== ENCOUNTER → 2023-01-17 11:54 | Outpatient (CLI) | payer MEDICARE, SELFPAY ==
--- NOTE | 2023-01-17 | DI.MRI.S_ITS ---
PROCEDURE: MR HEAD/BRAIN WO CON INDICATIONS: Syncope and collapse TECHNIQUE: Non-contrast axial T1 spin echo, axial T2 fast spin echo, sagittal and axial FLAIR, coronal T2 fast spin echo, axial gradient echo, axial diffusion and ADC through the brain. COMPARISON: None. FINDINGS: Image quality: Excellent. CSF spaces: Ventricles appear symmetric in size and shape. Basal cisterns are patent. No extra-axial fluid collections. Brain: No intracranial bleeds or mass effects. There is cerebral volume loss for age. There are periventricular and deep white matter chronic small vessel ischemic changes. There is an asymmetrical 20 mm diameter region of ill-defined, moderate FLAIR signal elevation within the right temporal periventricular white matter. Brainstem appears normal. Diffusion-weighted images show no acute ischemic insults. No chronic ischemic insults. Normal intravascular flow voids are present. Skull and face: Calvarial bone marrow is normal in signal. Orbits are normal. Sinuses: Sinuses and mastoids are clear. IMPRESSION: 1. Mild volume loss and small vessel ischemic disease. 2. Focal asymmetrical region of FLAIR signal elevation within the right temporal lobe. This may represent asymmetrical small vessel ischemic disease. Postcontrast evaluation is recommended to assess for the less likely possibility of underlying neoplasm. Dictated by: Tasia Duarte M.D. on 01/19/2023 at 8:23 Approved by: Tasia Duarte M.D. on 01/19/2023 at 8:25
== END ==
PROVIDERS: PCP Family Medicine; Referring Provider Family Medicine; Visit Provider Family Medicine
DX: R55 Syncope and collapse (principal); R41.89 Other symptoms and signs involving cognitive functions and awareness
CPT/HCPCS: 70551

== ENCOUNTER → 2023-02-17 10:51 | Outpatient (CLI) | payer MEDICARE, SELFPAY ==
--- NOTE | 2023-02-17 | DI.MRI.S_ITS ---
PROCEDURE: MR HEAD/BRAIN WO/W CON INDICATIONS: Syncope and collapse TECHNIQUE: Noncontrast axial T1 spin echo, axial T2 fast spin echo, sagittal and axial FLAIR, coronal T2 fast spin echo, axial gradient echo, axial diffusion and ADC through the brain. After the administration of contrast, axial and coronal and sagittal T1 spin echo with fat saturation through the brain. COMPARISON: [facility], MR, MR HEAD/BRAIN WO CON, 01/17/2023, 13:46. FINDINGS: Image quality: Excellent. CSF spaces: Basal cisterns are patent. No extra-axial fluid collections. Ventricles are normal in size and shape. Brain: No midline shift. No intracranial bleeds or masses. No abnormal intracranial enhancement. There is cerebral volume loss for age. The high FLAIR signal focus within the right temporal periventricular white matter measuring 20 mm is not significantly changed without enhancement following intravenous contrast administration. There is periventricular white matter chronic small vessel ischemic change. The brainstem appears normal. Diffusion-weighted images demonstrate no acute ischemic insults. No chronic ischemic insults. Normal intravascular flow voids are present. Skull and face: Calvarial marrow is normal in signal. Orbits appear normal. Sinuses: Sinuses and mastoids appear clear. IMPRESSION: 1. Volume loss and small vessel ischemic disease. 2. No abnormal enhancement within the right temporal lobe white matter focus, suggestive of small vessel disease. 3. No acute process. No recent infarct. Dictated by: Tasia Duarte M.D. on 02/17/2023 at 13:27 Approved by: Tasia Duarte M.D. on 02/17/2023 at 13:29
--- NOTE | 2023-02-17 | DI.CT.S_ITS ---
PROCEDURE: CT CHEST W CON INDICATIONS: Shortness of breath TECHNIQUE: After the administration of intravenous contrast, 5 mm thick sections acquired from the pulmonary apices to the posterior costophrenic angles. 1 mm axial lung, 5 mm thick coronal and sagittal reformats and 7 mm axial MIP were acquired. For radiation dose reduction, the following was used: automated exposure control, adjustment of mA and/or kV according to patient size. COMPARISON: [facility], CT, CT CHEST ABD PEL W CON, 02/03/2019, 9:51. [facility], CR, XR CHEST 2V, 11/20/2022, 17:40. FINDINGS: Image quality: Excellent. Lungs and pleura: No acute air space opacities. No pleural effusions or pneumothorax. Central and peripheral airways are patent and normal in caliber. Mediastinum: Heart size is normal. No pericardial effusion. No mediastinal or hilar adenopathy by size criteria. Thoracic aorta and central pulmonary arteries are normal in size. Esophagus is normal in caliber. No hiatal hernia. Bones and chest wall: No suspicious bony lesions. Remote, poorly healed left posterior rib fractures are seen. Accentuated thoracic kyphosis is seen. No vertebral body compression fractures. No axillary or supraclavicular adenopathy by size criteria. Thyroid gland demonstrates no significant abnormality. Abdomen: Visualized upper abdominal solid organs appear normal. Upper abdominal bowel loops are normal in caliber. IMPRESSION: A cause of shortness of breath is not seen. Clear lungs. Remote, poorly healed left posterior rib fractures seen, which are not seen in 2019, even in retrospect. Dictated by: Christophe Jackson M.D. on 02/17/2023 at 15:25 Approved by: Christophe Jackson M.D. on 02/17/2023 at 15:28
== END ==
PROVIDERS: PCP Family Medicine; Referring Provider Family Medicine; Visit Provider Family Medicine
DX: R55 Syncope and collapse (principal); R25.1 Tremor, unspecified; J98.4 Other disorders of lung; R06.02 Shortness of breath; S22.32XS Fracture of one rib, left side, sequela; M40.204 Unspecified kyphosis, thoracic region
CPT/HCPCS: 70553; 71260

== ENCOUNTER → 2023-07-15 11:30 | Outpatient (CLI) | payer MEDICARE, SELFPAY | PROVIDERS: PCP Family Medicine; Visit Provider Specialist | DX: N40.0 Benign prostatic hyperplasia without lower urinary tract symptoms (principal); Z85.46 Personal history of malignant neoplasm of prostate; Z85.47 Personal history of malignant neoplasm of testis | CPT/HCPCS: 51798; 81002; 87077; 87086; 87186; 99214 ==

== ENCOUNTER → 2023-12-08 14:54 | Outpatient (CLI) | payer MEDICARE, SELFPAY ==
--- NOTE | 2023-12-08 14:57 | DI.RAD.S_ITS ---
PROCEDURE: XR THORACIC SPINE 3V INDICATIONS: THORACIC SPINE PAIN TECHNIQUE: 3 views of the thoracic spine were acquired. COMPARISON: [facility], CR, XR THORACIC SPINE 3V, 11/27/2020, 16:42. FINDINGS: Bones: No fractures or dislocations. No suspicious bony lesions. 13 pairs of ribs are noted, and appear intact where visualized. Degenerative changes are redemonstrated including intervertebral disc space narrowing, endplate sclerosis and osteophytosis. Findings are slightly increased in extent when compared with the 2020 study. No new compression deformities. Soft tissues: No paravertebral stripe thickening. IMPRESSION: 13 pairs of ribs noted. Degenerative change increased in extent from 2020. Dictated by: Mamie Jean-Baptiste M.D. on 12/08/2023 at 17:28 Approved by: Mamie Jean-Baptiste M.D. on 12/08/2023 at 17:29
== END ==
PROVIDERS: PCP Family Medicine; Referring Provider Family Medicine; Visit Provider Family Medicine
DX: M47.814 Spondylosis without myelopathy or radiculopathy, thoracic region (principal); M54.6 Pain in thoracic spine
CPT/HCPCS: 72072

== ENCOUNTER → 2024-02-04 10:40 | Outpatient (CLI) | payer MEDICARE, SELFPAY | LOC: PHYS 10:41 | PROVIDERS: Family Provider Family Medicine; PCP Family Medicine; Referring Provider Family Medicine; Visit Provider Family Medicine | DX: R20.0 Anesthesia of skin (principal); R20.2 Paresthesia of skin; R26.81 Unsteadiness on feet | CPT/HCPCS: 95886; 95911 ==

== ENCOUNTER → 2024-04-13 15:28 | Outpatient (CLI) | payer MEDICARE, SELFPAY ==
--- NOTE | 2024-04-13 17:00 | DI.MRI.S_ITS ---
PROCEDURE: MR LUMBAR SPINE WO CON INDICATIONS: Low back pain, unspecified TECHNIQUE: Noncontrast sagittal T1 spin echo and T2 fast echo, sagittal STIR, and T2 fast spin echo through the lumbar spine. In cases with scoliosis, additional coronal T2 fast spin echo may be performed. COMPARISON: None. FINDINGS: Image quality: Excellent. Alignment and Curvature: There is normal bony alignment. Bone Marrow: Marrow is of normal overall signal. No acute vertebral body compression fractures. Spinal Cord: Conus medullaris terminates at the L1-2 level. Visualized cord demonstrates normal signal and size. Paraspinous Soft Tissues: No paravertebral masses. Discs: Scattered minimal to mild disc desiccation. T12-L1: No disc bulge, spinal stenosis or foraminal narrowing. L1-L2: No disc bulge, spinal stenosis or foraminal narrowing. L2-L3: No disc bulge, spinal stenosis or foraminal narrowing. L3-L4: No disc bulge, spinal stenosis or foraminal narrowing. L4-L5: Mild disc bulge without spinal stenosis. Mild bilateral foraminal narrowing with facet and ligamentum flavum hypertrophy. L5-S1: Mild disc bulge with mild spinal stenosis. Moderate bilateral foraminal narrowing, left greater than right with facet and ligamentum flavum hypertrophy. IMPRESSION: Degenerative changes most prominent L5-S1 demonstrating mild spinal stenosis moderate bilateral foraminal narrowing. Dictated by: Torrie Mayfield M.D. on 04/13/2024 at 17:15 Approved by: Torrie Mayfield M.D. on 04/13/2024 at 17:17
== END ==
PROVIDERS: Family Provider Family Medicine; PCP Family Medicine; Referring Provider Family Medicine; Visit Provider Family Medicine
DX: M47.817 Spondylosis without myelopathy or radiculopathy, lumbosacral region (principal); M47.816 Spondylosis without myelopathy or radiculopathy, lumbar region; M48.061 Spinal stenosis, lumbar region without neurogenic claudication; M48.07 Spinal stenosis, lumbosacral region; M54.50 Low back pain, unspecified; G62.9 Polyneuropathy, unspecified; R26.89 Other abnormalities of gait and mobility
CPT/HCPCS: 72148

== ENCOUNTER → 2024-07-19 11:41 | Outpatient (CLI) | payer MEDICARE, SELFPAY ==
--- NOTE | 2024-07-19 11:42 | DI.RAD.S_ITS ---
PROCEDURE: XR LUMBAR SPINE MIN 4V INDICATIONS: BACK PAIN TECHNIQUE: 5 views of the lumbar spine were acquired, including bilateral oblique views. COMPARISON: None. FINDINGS: Bones: 4 nonrib-bearing vertebrae are present. There is normal bony alignment. No vertebral body compression fractures. Lower lumbar facet arthropathy. No pars defects. Mild multilevel disc height loss. No suspicious bony lesions. Soft tissues: Overlying bowel gas pattern is normal. No suspicious soft tissue calcifications. Oblique images: No pars defects. IMPRESSION: Degenerative change. No acute bony abnormality. Comment: Please note that there are 4 non rib-bearing lumbar vertebral bodies. If surgery is planned in this patient, careful correlation for correct surgical level is required. Dictated by: Humble Eason M.D. on 07/19/2024 at 13:23 Approved by: Humble Eason M.D. on 07/19/2024 at 13:38
== END ==
PROVIDERS: Family Provider Family Medicine; PCP Family Medicine; Referring Provider Physical Medicine & Rehabilitation; Visit Provider Physical Medicine & Rehabilitation
DX: M47.816 Spondylosis without myelopathy or radiculopathy, lumbar region (principal); M54.9 Dorsalgia, unspecified
CPT/HCPCS: 72110

== ENCOUNTER 2025-01-03 12:28 | Emergency (ER) | payer MEDICARE, SELFPAY ==
[2025-01-03 12:32] VITALS: BP 175/82; PULSE 72; RESP 22; TEMP 36.7; O2SAT 98; BMI 31.9
--- NOTE | 2025-01-03 12:36 | DI.RAD.S_ITS ---
PROCEDURE: XR CHEST 1V INDICATIONS: Shortness of breath TECHNIQUE: One view of the chest was acquired. COMPARISON: [facility], , XR CHEST 2V, 11/20/2022, 17:40. FINDINGS: Surgical changes and devices: None. Lungs and pleura: Mild pulmonary vascular congestion. No definite focal infiltrate. No pleural effusions or pneumothorax. Mediastinum: Mediastinal contours appear normal. Heart size is enlarged. Bones and chest wall: No suspicious bony lesions. Overlying soft tissues appear unremarkable. IMPRESSION: Cardiomegaly and mild congestion. No definite focal infiltrate. No pleural effusion or pneumothorax. Dictated by: Suresh Hendrix M.D. on 01/03/2025 at 13:13 Approved by: Suresh Hendrix M.D. on 01/03/2025 at 13:13
--- NOTE | 2025-01-03 12:45 | EKG_ITS ---
[place] [address] [address] [place] [id number] Test Date: 2025-01-03 Pat Name: Emiliano Goyal Department: [facility] Room: Gender: Male Budget Coordinator: RICK : 1945 Requested By: Order Number: [id number] Reading MD: Mirza Hummel Measurements Intervals Gordon Rate: 74 P: 29 ME: 170 QRS: 24 QRSD: 106 T: 29 QT: 382 QTc: 424 Interpretive Statements Normal sinus rhythm Electronically Signed On 01-04-2025 18:42:39 PDT by Mirza Hummel
[2025-01-03 13:04] LABS: Add Manual Diff / Slide Review NO; Basophils Absolute Auto 100 /uL (0-100); Basophils Percent Auto 0.9 % (0-2); Eosinophils Absolute Auto 300 /uL (0-450); Eosinophils Percent Auto 3.7 % (2-4); Hematocrit 40.1 % (41-53); Hemoglobin 13.5 g/dL (13.5-17.5); Lymphocytes Absolute Auto 2100 /uL (1100-4500); Lymphocytes Percent Auto 27.1 % (25-40); Mean Corpuscular HGB Conc 33.8 % (30-36); Mean Corpuscular Hemoglobin 29.2 PG (26-34); Mean Corpuscular Volume 86.5 fL (80-100); Monocytes Absolute Auto 700 /uL (0-900); Monocytes Percent Auto 8.7 % (3-14); Neutrophils Absolute Auto 4700 /uL (1500-7000); Neutrophils Percent Auto 59.6 % (50-75); Platelet Count 272 X10^3/uL (150-400); Red Blood Cell Count 4.64 X10^6/uL (4.5-5.9); Red Cell Distribution Width 13.7 % (11.6-14.8); White Blood Cell Count 7.8 X10^3/uL (4.5-11.0)
[2025-01-03 13:09] LABS: Prothrombin Time 11.5 SECONDS (9.4-12.5)
--- NOTE | 2025-01-03 13:09 | ED.SOB ---
HPI - SOB/Dyspnea General Chief Complaint: Shortness of Breath/Dyspnea Stated Complaint: SOB, x 2days Time Seen by Provider: 01/03/25 13:00 Source: patient Mode of arrival: Ambulatory Limitations: no limitations History of Present Illness HPI Narrative: 79-year-old gentleman history of high blood pressure dyslipidemia presents with shortness of breath dyspnea on exertion over the weekend whereby he was playing with the grandson and not even walked a few feet and felt winded already. Patient denies any history of DVT PE leg swelling or weight gain and is currently not on any fluid pill. Denies any URI symptoms fever chills body aches or any sick contacts. Other than what is stated 14 point review of system is negative Related Data Home Medications Medication Instructions Recorded Confirmed atorvastatin 10 mg tablet 10 mg PO DAILY 09/03/20 07/20/24 cyanocobalamin (vitamin B-12) 500 500 mcg PO DAILY 09/03/20 07/20/24 mcg chewable tablet omega-3 fatty acids 1,000 mg 1,000 mg PO DAILY 09/03/20 07/20/24 capsule (Fish Oil Concentrate) cholecalciferol (vitamin D3) PO 06/11/21 07/20/24 losartan 25 mg tablet 25 mg PO DAILY 07/20/24 07/20/24 Previous Rx's Medication Instructions Recorded furosemide 40 mg tablet (Lasix) 40 mg PO DAILY #2 tabs 01/03/25 Allergies Allergy/AdvReac Type Severity Reaction Status Date / Time No Known Drug Allergies Allergy Verified 07/20/24 13:35 Review of Systems Review of Systems ROS Unobtainable: All systems reviewed & are unremarkable except as noted in HPI and below Patient History Medical History Degeneration of intervertebral disc at L5-S1 level H/O agent [place] exposure Peripheral neuropathy 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 Well-developed patient, in mild distress. HEAD: Atraumatic. Normocephalic. EYES: Pupils equal round and reactive. Extraocular motions intact. No scleral icterus. No injection or drainage. ENT: Nose without bleeding, purulent drainage. Throat without erythema, tonsillar hypertrophy or exudate. Airway patent. NECK: Trachea midline. Non tender CARDIOVASCULAR: Regular rate and rhythm without murmurs, gallops, or rubs. RESPIRATORY: Faint crackles L base, trace edema pretibial GASTROINTESTINAL: Abdomen soft, non-tender, nondistended. EXTREMITIES: No edema or joint tenderness. BACK: Nontender without deformity or crepitance. No flank tenderness. NEURO: AOx3. SKIN: No rash or erythema of visible areas Initial Vital Signs Initial Vital Signs: Vital Signs Temperature 98.1 F 01/03/25 12:32 Pulse Rate 72 01/03/25 12:32 Respiratory Rate 22 01/03/25 12:32 Blood Pressure 175/82 H 01/03/25 12:32 Pulse Oximetry 98 01/03/25 12:32 Oxygen Delivery Method Room Air 01/03/25 12:32 Course Orders Ordered: ED Orders 01/03/25 12:36 XR chest 1V Stat EKG-12 Lead Stat Measure peak expiratory flow ONCE RT Consult Eval and Treat NOW 01/03/25 12:52 Complete Blood Count AUTO DIFF Stat Comprehensive Metabolic Panel Stat Lactate (Lactic Acid) Stat NT-proBNP (BNP-Adult 18+) Stat Prothrombin Time INR Stat Troponin I Stat Vital Signs Vital signs: Vital Signs - 8 hr 01/03/25 12:32 Temperature 98.1 F Pulse Rate 72 Respiratory Rate 22 Blood Pressure 175/82 H Pulse Oximetry 98 Oxygen Delivery Method Room Air MDM - SOB/Dyspnea Lab Data 01/03/25 12:52 01/03/25 12:52 Labs: Lab Results 01/03/25 Range/Units 12:52 WBC 7.8 (4.5-11.0) X10^3/uL RBC 4.64 (4.5-5.9) X10^6/uL Hgb 13.5 (13.5-17.5) g/dL Hct 40.1 L (41-53) % MCV 86.5 (80-100) fL MCH 29.2 (26-34) PG MCHC 33.8 (30-36) % RDW 13.7 (11.6-14.8) % Plt Count 272 (150-400) X10^3/uL Neut % (Auto) 59.6 (50-75) % Lymph % (Auto) 27.1 (25-40) % Yell % (Auto) 8.7 (3-14) % Eos % (Auto) 3.7 (2-4) % Baso % (Auto) 0.9 (0-2) % Neut # (Auto) 4700 (5301-4275) /uL Lymph # (Auto) 2100 (6238-6682) /uL Yell # (Auto) 700 (0-900) /uL Eos # (Auto) 300 (0-450) /uL Baso # (Auto) 100 (0-100) /uL PT 11.5 (9.4-12.5) SECONDS INR 1.0 (0.9-1.3) Sodium 140 (137-145) mmol/L Potassium 4.2 (3.4-5.1) mmol/L Chloride 105 (98-107) mmol/L Carbon Dioxide 25 (22-32) mmol/L BUN 19 (9-20) mg/dL Creatinine 1.12 (0.66-1.25) mg/dL Estimated GFR > 60 (>60) mL/min BUN/Creatinine Ratio 17.0 (6-22) Glucose 90 (80-110) mg/dL Lactate 1.1 (0.7-2.1) mmol/L Calcium 9.4 (8.4-10.2) mg/dL Total Bilirubin 0.6 (0.2-1.3) mg/dL AST 35 (17-59) IU/L ALT 32 (<50) IU/L Alkaline Phosphatase 72 (38-126) U/L Troponin I < 0.012 (0.01-0.034) ng/mL NT-Pro-B Natriuret Pep 52 (<450) pg/mL Total Protein 7.7 (6.3-8.2) g/dL Albumin 4.3 (3.5-5.0) g/dL Globulin 3.4 (1.7-4.1) g/dL Albumin/Globulin Ratio 1.3 (1.0-2.8) Imaging Data Chest x-ray: Radiologist's Impression: [address] [address] XRay Report Signed Patient: Emiliano Goyal MR#: [id number] : 1945 Acct:[id number] Age/Sex: 79 / M Date of Service: 01/03/25 Loc: ED Accession Number: [id number] Procedure: XR chest 1V Ordering Provider: Ian Dejesus D.O. PROCEDURE: XR CHEST 1V INDICATIONS: Shortness of breath TECHNIQUE: One view of the chest was acquired. COMPARISON: [facility], , XR CHEST 2V, 11/20/2022, 17:40. FINDINGS: Surgical changes and devices: None. Lungs and pleura: Mild pulmonary vascular congestion. No definite focal infiltrate. No pleural effusions or pneumothorax. Mediastinum: Mediastinal contours appear normal. Heart size is enlarged. Bones and chest wall: No suspicious bony lesions. Overlying soft tissues appear unremarkable. IMPRESSION: Cardiomegaly and mild congestion. No definite focal infiltrate. No pleural effusion or pneumothorax. Dictated by: Suresh Hendrix M.D. on 01/03/2025 at 13:13 Approved by: Suresh Hendrix M.D. on 01/03/2025 at 13:13 ECG Data Interpretation: NSR HR [address]-t wave changes SC 170 QRS 424 QT 382 no previous ekg to compare MDM Narrative Medical decision making narrative: all lab work EKG chest x-ray all reviewed patient was given Lasix 40 mg IV x1. All medication list previous ER visits previous imaging modalities and nurse triage note and vital signs all reviewed as well. Differential diagnosis includes CHF STEMI NSTEMI unstable angina PE. Patient has a follow up appointment with PCP in 2 weeks Discharge Plan Departure Patient Disposition: Home Clinical Impression: CHF (congestive heart failure) Qualifiers: Heart failure chronicity: acute Instructions: DI for Heart Failure Activity Restrictions/Additional Instructions: return with new or worsening symptoms. Take your medicines as directed. Follow up with your PCP appointment in 2 weeks Prescriptions: New furosemide [Lasix] 40 mg tablet 40 mg PO DAILY Qty: 2 0RF No Action omega-3 fatty acids [Fish Oil Concentrate] 1,000 mg capsule 1,000 mg PO DAILY cyanocobalamin (vitamin B-12) 500 mcg tablet,chewable 500 mcg PO DAILY atorvastatin 10 mg tablet 10 mg PO DAILY losartan 25 mg tablet 25 mg PO DAILY cholecalciferol (vitamin D3) PO Referrals: Karin Rolle MD [Primary Care Provider] - Stand Alone Forms: Patient Portal/API/Survey
[2025-01-03 13:13] LABS: Lactate (Lactic Acid) 1.1 mmol/L (0.7-2.1)
[2025-01-03 13:14] LABS: Alanine Aminotransferase 32 IU/L (<50); Albumin 4.3 g/dL (3.5-5.0); Albumin Globulin Ratio 1.3 (1.0-2.8); Alkaline Phosphatase 72 U/L (38-126); Aspartate Aminotransferase 35 IU/L (17-59); Bilirubin Total 0.6 mg/dL (0.2-1.3); Blood Urea Nitrogen 19 mg/dL (9-20); Calcium 9.4 mg/dL (8.4-10.2); Carbon Dioxide 25 mmol/L (22-32); Chloride 105 mmol/L (98-107); Estimated Glomerular Filt Rate > 60 mL/min (>60); Globulin 3.4 g/dL (1.7-4.1); Glucose 90 mg/dL (80-110); HEMOLYSIS 29 (0-50); Potassium 4.2 mmol/L (3.4-5.1); Sodium 140 mmol/L (137-145); Total Protein 7.7 g/dL (6.3-8.2)
[2025-01-03 13:25] LABS: NT-proBNP (BNP-Adult 18+) 52 pg/mL (<450); Troponin I < 0.012 ng/mL (0.01-0.034)
[2025-01-03] MEDS: FUROSEMIDE 40 MG/4 ML VIAL IV (14:59)
[2025-01-03 15:09] VITALS: BP 185/91; PULSE 65; O2SAT 98
== END 2025-01-03 15:09 | disposition home or self-care (01) ==
PROVIDERS: Emergency Provider Family Medicine; Family Provider Family Medicine; PCP Family Medicine
DX: I50.9 Heart failure, unspecified (principal)
CPT/HCPCS: 71045; 80053; 83605; 83880; 84484; 85025; 85610; 93005; 96374; 99283; 99284; J1938

== ENCOUNTER → 2025-02-24 09:08 | Outpatient (CLI) | payer MEDICARE, SELFPAY ==
--- NOTE | 2025-02-24 09:10 | DI.ECHO.S_ITS ---
[facility] : : [address] : [place] : : [id number] : : Phone: [phone] Echocardiogram Report + + :Name: ROSEANNA VAIL Study Date: 02/24/2025 Height: 68 in : :[facility] ReadingLocation: Weight: 210 lb : : Gender: Male BSA: 2.1 m2 : :: 1945 Age: 79 yrs BP: 175/86 mmHg: :Reason For Study: SHORTNESS OF BREATH : :Ordering Physician: JEFF, : :DOUGLAS Performed By: Pete Aguilar : :Referring: DOUGLAS AGUILAR : + + Interpretation Summary The study quality was technically difficult. The ejection fraction is estimated to be 55-60%. Diastolic parameters suggest probable normal left ventricular diastolic function and normal filling pressures. The right ventricle is mildly dilated. The right ventricular systolic function is normal. No significant valvular abnormalities. Pulmonary artery pressures cannot be estimated because of the lack of a measurable TR jet velocity. Procedure: A two-dimensional transthoracic echocardiogram with color flow and Doppler was performed. There is no prior echocardiogram noted for this patient. The study quality was technically difficult. The patient was in normal sinus rhythm during the exam. Left Ventricle: The left ventricle is normal in size. Left ventricular wall thickness is borderline increased. There is no ventricular septal defect visualized. The ejection fraction is estimated to be 55-60%. There are no focal wall motion abnormalities. Diastolic parameters suggest probable normal left ventricular diastolic function and normal filling pressures. Right Ventricle: The right ventricle is mildly dilated. The right ventricular systolic function is normal. Atria: The left atrial size is normal. Right atrial size is normal. The interatrial septum is not well visualized. Mitral Valve: The mitral valve is normal in structure and function. There is no mitral regurgitation noted. Aortic Valve: The aortic valve is trileaflet. The aortic valve opens well. The aortic valve is mildly calcified. There is no aortic valve stenosis. No aortic regurgitation is present. Tricuspid Valve: The tricuspid valve is not well visualized, but is grossly normal. No tricuspid regurgitation. Pulmonary artery pressures cannot be estimated because of the lack of a measurable TR jet velocity. Pulmonic Valve: The pulmonic valve is not well seen, but is grossly normal. There is no pulmonic valvular regurgitation. Great Vessels: The aortic root is mildly dilated. The dimensions of the ascending aorta are normal. The pulmonary artery is normal size. The inferior vena cava was not visualized. Pericardium/ Pleura There is no pericardial effusion. MMode/2D Measurements & Calculations LVIDd: 4.5 cm LVOT diam: 2.3 cm LVIDs: 3.0 cm Ao root diam: 3.8 cm FS: 34.6 % asc Aorta Diam: 3.1 cm EPSS: 0.83 cm IVSd: 1.1 cm LVPWd: 1.1 cm LV hernandez. diameter/BSA (cm/m^2): 2.2 LV sys. diameter/BSA (cm/m^2): 1.4 LA A2 area: 18.2 cm2 RA long axis: 3.6 cm LA A4 area: 20.5 cm2 RA area: 10.4 cm2 LA length (vol): 6.2 cm RA vol: 25.6 ml LA vol: 51.2 ml RA : 12.3 ml/m2 LA vol index: 24.5 ml/m2 RVD1 (basal): 4.0 cm RVD2 (mid): 3.2 cm TAPSE: 2.2 cm Doppler Measurements & Calculations Ao V2 max: 105.7 cm/sec LVOT Max Jonas: 81.0 cm/sec Ao V2 mean: 83.0 cm/sec LV V1 max P.6 mmHg Ao max P.5 mmHg LV V1 VTI: 20.0 cm Ao mean P.9 mmHg TAMMI(I,D): 3.3 cm2 Ao V2 VTI: 25.9 cm TAMMI(V,D): 3.3 cm2 sev ratio: 0.77 TAMMI indexed to BSA (cm^2/m^2): 1.6 MV E max jonas: 71.7 cm/sec PA V2 max: 91.5 cm/sec MV A max jonas: 81.2 cm/sec PA V2 mean: 63.2 cm/sec MV E/A: 0.88 PA mean P.8 mmHg Med Peak E' Jonas: 6.8 cm/sec PA pr(Accel): 60.2 mmHg E/E' med: 10.6 Lat Peak E' Jonas: 6.9 cm/sec E/E' lat: 10.4 E/e' average: 10.5 MV dec time: 0.20 sec SV([facility]): 85.4 ml Reading Physician:03:59 PM
== END ==
PROVIDERS: Family Provider Family Medicine; PCP Family Medicine; Referring Provider Family Medicine; Visit Provider Family Medicine
DX: I77.89 Other specified disorders of arteries and arterioles (principal); I70.0 Atherosclerosis of aorta; R06.09 Other forms of dyspnea; R06.02 Shortness of breath
CPT/HCPCS: 93306

== ENCOUNTER → 2025-03-07 07:35 | Outpatient (CLI) | payer MEDICARE, SELFPAY ==
--- NOTE | 2025-03-07 07:36 | DI.NM.S_ITS ---
PROCEDURE: NM CUAUHTEMOC PERF SPECT R&S PHARM Rest and pharmacological stress myocardial perfusion SPECT with gated imaging and ejection fraction RADIOPHARMACEUTICAL: 25.3 mCi Tc-99m tetrafosmin IV at rest and 26.7 mCi Tc-99m tetrafosmin IV at peak effect of pharmacological stress. [id number] was performed. INDICATIONS: DYSPNEA / SHORTNESS OF BREATH PQRS ATTESTATIONS: Measure 322 - Is this imaging test primarily performed on a low-risk surgery patient for preoperative evaluation within 30 days preceding their low-risk non-cardiac surgery? Low-risk surgery is defined as cardiac or myocardial infarction less than 1%, including (but not limited to) endoscopic procedures, superficial procedures, cataract surgery, and excisional breast surgery: Answer: No Measure 323 - Is this imaging test performed primarily for the monitoring of an asymptomatic patient who had percutaneous coronary intervention on the visit date or within 2 years of the visit date? Answer: No Measure 324 - Is this imaging test performed primarily for the initial detection and risk assessment on an asymptomatic, low coronary heart disease patient? Low CHD risk definition = clinicians should consider the maximum number of available patient factors used to estimate risk based on [place] (ATP III criteria), typically age, gender, diabetes, smoking status, and use of blood pressure medication, and integrate age appropriate estimates for missing elements, such as LDL or standard blood pressure. Answer: No TECHNIQUE: Radiopharmaceutical was injected at peak stress test, and also at rest. SPECT images were obtained. SPECT myocardial perfusion images were displayed in short axis, horizontal long axis, and vertical long axis views. Gated images were reviewed using [employer] software. COMPARISON: None. CARDIAC STRESS: A pharmacologic stress test was performed under the supervision of an attending staff, using an infusion of 0.4 mg of Lexiscan. Hemodynamic data: There is normal blood pressure and heart rate response to pharmacologic stress. Symptoms: The patient denied anginal chest pain. Aminophylline: None EKG: No diagnostic changes of ischemia; no ectopy. FINDINGS: Raw data: There is good myocardial uptake of radiotracer. No significant motion artifacts. Enbn-ak-[id number] ratio is 0.23 (normal is less than 0.38 for tetrafosmin tracer). Left ventricle function: Gated images demonstrate normal left ventricular wall thickening. No segmental wall motion abnormalities. No transient ischemic dilation; TID is 1.03 (normal less than 1.3). Left ventricle resting end diastolic volume is 105 mL. Left ventricle stress ejection fraction is 70%; normal range is above 45%. Myocardial perfusion: There is normal distribution of activity in the right and left ventricular myocardium. No fixed or reversible perfusion defects. IMPRESSION: 1. Negative Lexiscan myocardial perfusion scan for ischemia and infarction. Dictated by: Cruzito Hendrix M.D. on 03/10/2025 at 16:58 Approved by: Cruzito Hendrix M.D. on 03/10/2025 at 17:00
== END ==
PROVIDERS: Family Provider Family Medicine; PCP Family Medicine; Referring Provider Family Medicine; Visit Provider Family Medicine
DX: R06.02 Shortness of breath (principal); R07.9 Chest pain, unspecified; R42 Dizziness and giddiness; R55 Syncope and collapse
CPT/HCPCS: 78452; 93017; A9502; J2785